=== PATIENT | female | born 1980 | race Hispanic/Latino ===

== ENCOUNTER 2022-08-08 11:24 | Observation (INO) | payer BC, MEDICAID, SELFPAY ==
[2022-08-08] VITALS (16 sets, daily range): BP systolic 154–196; BP diastolic 83–141; PULSE 44–68; RESP 15–22; TEMP 35.7–36.9; O2SAT 94–100; BMI 23.1; BMI 22.8
--- NOTE | 2022-08-08 11:33 | EKG12_ITS ---
Test Reason : NEURO Blood Pressure : / mmHG Vent. Rate : 067 BPM Atrial Rate : 067 BPM P-R Int : 158 ms QRS Dur : 082 ms QT Int : 432 ms P-R-T Axes : 074 076 073 degrees QTc Int : 456 ms Normal sinus rhythm Normal ECG Confirmed by LACY CARR ([id number]), development editor AVNI CADENA ([id number]) on 08/12/2022 8:01:38 AM Referred By: Confirmed By:LACY CARR
--- NOTE | 2022-08-08 11:33 | CT_ITS ---
HISTORY: Neuro deficit, acute, stroke suspected. TECHNIQUE: Multiple axial images were obtained of the head without intravenous contrast. A radiation dose optimization technique was used for this scan. 226 images. COMPARISON: None. FINDINGS: BRAIN PARENCHYMA: Small chronic appearing left superolateral cerebellar infarct. Small subacute appearing left inferomedial cerebellar infarct. No acute intra-axial hemorrhage identified. CSF SPACES: Generalized volume loss. No midline shift or other significant mass effect. No acute extra-axial hemorrhage seen. OTHER: Intact calvarium. No significant air fluid levels in the paranasal sinuses or mastoid air cells. Unremarkable orbits. CT/STROKE Brain/Head without Cont IMPRESSION: Small subacute appearing left inferomedial cerebellar infarct. No acute intracranial hemorrhage identified. Small chronic appearing left superolateral cerebellar infarct. N.B. : The above Results were Read Back by Mercedes Ding MD to Olaf Oates MD, and understanding confirmed on 08/08/2022 11:52:03 (ET). Electronically Signed: Mercedes Ding MD at 11:52 EDT ,
--- NOTE | 2022-08-08 11:34 | CT_ITS ---
HISTORY: vertigo, weakness - feels worse L side. Confusion, dysphasia, history of CVA.. TECHNIQUE: [place]/head and carotid CT angiogram protocol was performed after the intravenous administration of 100 mL Isovue 370. NASCET criteria using the distal ICAs for comparison were used for evaluation of stenoses. 3D reconstructions were reviewed. A radiation dose optimization technique was used for this scan. 1859 images. COMPARISON: CT head same day. FINDINGS: AORTIC ARCH AND BRANCHES: Patent. RIGHT CCA: No occlusion, significant stenosis or dissection. RIGHT ICA: No occlusion, significant stenosis or dissection. LEFT CCA: No occlusion, significant stenosis or dissection. LEFT ICA: No occlusion, significant stenosis or dissection. RIGHT VERTEBRAL ARTERY: Hypoplastic without occlusion. LEFT VERTEBRAL ARTERY: Dominant. No occlusion, significant stenosis or dissection. ICAs: No significant stenosis at the intracranial/visualized segments. ACAs: No significant stenosis at the visualized segments. MCAs: No significant stenosis at the visualized segments. restaurant crew: No significant stenosis at the visualized segments. Mild narrowing of the left P1 segment. BASILAR ARTERY: No significant stenosis. VERTEBRAL ARTERIES: Hypoplastic intracranial right vertebral artery terminates as PICA. Patent dominant left vertebral artery. No evidence of intracranial aneurysm or vascular malformation. CT/STROKE CTA Head AND Neck W/Con IMPRESSION: No evidence for significant stenosis or occlusion in the carotid or vertebral arteries of the neck. No evidence for large vessel occlusion in the [place] region. N.B. : The above Results were Read Back by Mercedes Ding MD to Olaf Oates MD, and understanding confirmed on 08/08/2022 12:06:16 (ET). Electronically Signed: Mercedes Ding MD at 12:06 EDT ,
--- NOTE | 2022-08-08 11:34 | ED.VIS.STROK ---
HPI History of Present Illness Chief Complaint: Syncope Informant: patient and EMS Narrative Narrative: Patient states just prior to arrival, she was at work, and she suddenly felt dizzy/spinning/vertiginous, had tinnitus in her left ear, and she states that is the last thing she remembered and thinks she passed out. She woke up on the floor. She is still having the spinning. She feels like she is heavy on the left side, and these are all similar symptoms that she had with mini strokes in the past. Apparently also she is an alcoholic, and she has a device on her car that makes her do a breathalyzer that is below a certain level before she can start her car, which she did prior to going to work this morning. The last time she had alcohol was yesterday, 2 shots. She states she has a throbbing headache right now. EMS states they estimate the episode happened only minutes prior to calling them for transport here. She is evaluated here by myself around 11:30 AM. [facility] Medical History (Updated 08/08/22 @ 13:[address] Olaf Oates MD) Blood clotting disorder CVA (cerebral vascular accident) Home Medications albuterol sulfate 90 mcg/actuation aerosol inhaler 1 puff inhalation Q6H PRN asthma 08/08/22 [History Last Taken Unknown] amlodipine 5 mg tablet 5 mg PO DAILY 08/08/22 [History Last Taken Unknown] atenolol 25 mg tablet 25 mg PO DAILY 08/08/22 [History Last Taken Unknown] clopidogrel 75 mg tablet (Plavix) 75 mg PO DAILY 08/08/22 [History Last Taken Unknown] famotidine 20 mg tablet (Pepcid) 20 mg PO DAILY 08/08/22 [History Last Taken Unknown] gabapentin 800 mg tablet 800 mg PO 4X/DAY 08/08/22 [History Last Taken Unknown] Allergy/AdvReac Type Severity Reaction Status Date / Time ketorolac [From Toradol] Allergy Other Verified 08/08/22 11:38 naproxen Allergy Other Verified 08/08/22 11:38 Sulfa (Sulfonamide Allergy Other Verified 08/08/22 11:38 Antibiotics) tramadol Allergy Other Verified 08/08/22 11:38 Social History Smoking Status: Current every day smoker tobacco type: cigarettes ROS ROS ED Constitutional Constitutional ED: Denies chills or fever(s) Eyes Eyes: Reports other Details: Trouble focusing due to vertigo but otherwise vision intact according to patient ; Denies change in vision or diplopia ENT ENT ED: Reports as per HPI, tinnitus and vertigo; Denies rhinorrhea or sore throat Cardiovascular Cardiovascular: Denies chest pain or palpitations Respiratory/Chest Respiratory/Chest: Denies cough or dyspnea Gastrointestinal Gastrointestinal: Denies abdominal pain, diarrhea, nausea or vomiting Genitourinary Genitourinary ED: Denies dysuria or hematuria Musculoskeletal Musculoskeletal: Denies back pain or neck pain Integumentary Denies abscess or rash Neurologic Neurologic: Reports abnormal speech, confusion, dizziness, headache(s) and weakness; Denies loss of vision Psychiatric Psychiatric: Denies anxiety or suicidal thoughts EXAM Physical Exam Const Vital Signs: 08/08/22 11:25 08/08/22 11:33 08/08/22 12:03 Temperature 97.7 F L 96.2 F L Temperature Source Temporal Temporal Pulse Rate 48 L 62 53 L Respiratory Rate 18 18 15 Blood Pressure 163/100 H 195/111 H 186/101 H Blood Pressure Mean 121 139 129 Pulse Ox 98 97 99 Oxygen Delivery Method Room Air Room Air Room Air 08/08/22 12:30 Temperature Temperature Source Pulse Rate 51 L Respiratory Rate 20 H Blood Pressure 162/115 H Blood Pressure Mean 130 Pulse Ox 95 Oxygen Delivery Method Room Air Positive well nourished and well developed General Appearance ED: well developed and NAD HEENT Reports moist mucous membranes normocephalic and atraumatic Eyes PERRL and EOMs intact bilaterally Eyes Narrative: Horizontal nystagmus, difficult to tell which direction, patient keeps moving her eyes Neck full ROM and supple Neck Narrative: No carotid bruits Resp normal respiratory effort and clear to auscultation bilaterally Cardio regular rate, regular rhythm and no murmurs GI non-tender and non-distended Auscultation: normoactive bowel sounds Palpation: soft Back/Spine no CVA tenderness General Back: other FROM Extremity normal to inspection General Extremety ED: Negative for edema, pulses abnormal or tenderness General Extremity: Negative for edema or pulses abnormal Neuro CN's II-XII intact bilaterally Neuro Narrative: See NIHSS. Patient does have some expressive aphasia, she has trouble repeating words and naming objects. Nonlateralizing peripheral weakness diffusely and symmetrically. Sensorium / Orientation: awake and alert Skin no rashes or lesions noted and no wounds NIHSS NIHSS Initial: 1a Level of Consciousness: 0 1b LOC Questions (Score 2 if aphasic/stupor): 2 1c LOC Commands (Only score 1st attempt): 0 2 Best Gaze (If aphasic, use reflexive mvmts.): 0 3 Visual: 0 4 Facial Palsy: 0 5 Motor Arm Right (UN = amputation/fusion): 2 5 Motor Arm Left: 2 6 Motor Leg Right: 2 6 Motor Leg Left: 2 7 Limb ataxia (Only + if out of proportion): 0 8 Sensory (Aphasia/stupor=0 or 1, coma=2): 1 9 Best Language: 1 10 Dysarthria (mute, coma=2, intubated=UN): 1 11 Extinction and Inattention (only scored if +): 0 Total Score: 13 MDM MDM MDM Narrative Medical decision making narrative: I called a stroke team because patient just started having the symptoms, states that this is similar to mini stroke that she had in the past, and her blood pressure is 195 the bedside when I am examining her. She does have some aphasia, but she does not have any lateralizing neurologic findings peripherally, questioning whether this is stroke or not. Tinnitus suggest a peripheral etiology, certainly this is a fairly mora case; I do not blame EMS for not suspecting an acute stroke, especially since the patient states she had a syncopal episode. Discussed with stroke neurologist after receiving phone calls from radiologist's regarding head CT showing an old infarct and a subacute infarct, without any old imaging available for comparison, and CTA of head and neck that are negative. I reviewed the images I agree with these interpretations. Stroke neurologist recommends against tenecteplase given unclear exact last known well, and unclear if this is an acute ischemic process, rather recommending inpatient stroke work-up. Patient unchanged on reexamination, weak diffusely peripherally. History & Record Review Additional record(s) reviewed:: No prior records Lab Data Attestation: I reviewed the patient's lab results. Labs: Laboratory Results - last 24 hr 08/08/22 08/08/22 08/08/22 11:15 11:15 11:15 WBC 5.5 RBC 3.77 L Hgb 12.0 Hct 35.9 L MCV 95.2 MCH 31.8 MCHC 33.4 RDW Std Deviation 43.6 RDW Coeff of [place]inda 12.6 Plt Count 193 MPV 10.0 Immature Gran % (Auto) 0.200 Neut % (Auto) 56.9 Lymph % (Auto) 34.1 [place] % (Auto) 4.3 Eos % (Auto) 3.6 Baso % (Auto) 0.9 Absolute Neuts (auto) 3.1 Absolute Lymphs (auto) 1.88 Nucleated RBC % 0 PT 13.9 INR 1.1 APTT 26.4 Sodium 139 Potassium 3.0 L Chloride 107 Carbon Dioxide 28.0 Anion Gap 4 L BUN 6 L Creatinine 0.67 Estim Creat Clear Calc 76.97 Est GFR (MDRD) Af Amer 122 Est GFR (MDRD) Non-Af 101 BUN/Creatinine Ratio 8.9 L Glucose 88 Calcium 8.8 Troponin I High Sens 5 Urine Opiates Screen Urine Methadone Screen Ur Barbiturates Screen Ur Phencyclidine Scrn Ur Amphetamines Screen MDMA (Ecstasy) Screen U Benzodiazepines Scrn Urine Cocaine Screen U Cannabinoids Screen Ur Drug Screen Comment Ethyl Alcohol 08/08/22 08/08/22 11:45 12:20 WBC RBC Hgb Hct MCV MCH MCHC RDW Std Deviation RDW Coeff of Lucinda Plt Count MPV Immature Gran % (Auto) Neut % (Auto) Lymph % (Auto) [place] % (Auto) Eos % (Auto) Baso % (Auto) Absolute Neuts (auto) Absolute Lymphs (auto) Nucleated RBC % PT INR APTT Sodium Potassium Chloride Carbon Dioxide Anion Gap BUN Creatinine Estim Creat Clear Calc Est GFR (MDRD) Af Amer Est GFR (MDRD) Non-Af BUN/Creatinine Ratio Glucose Calcium Troponin I High Sens Urine Opiates Screen NEGATIVE Urine Methadone Screen NEGATIVE Ur Barbiturates Screen NEGATIVE Ur Phencyclidine Scrn NEGATIVE Ur Amphetamines Screen NEGATIVE MDMA (Ecstasy) Screen NEGATIVE U Benzodiazepines Scrn NEGATIVE Urine Cocaine Screen NEGATIVE U Cannabinoids Screen POSITIVE H Ur Drug Screen Comment Ethyl Alcohol < 3.0 Radiography Chest X-Ray - ED: 1 View, Read by ED Physician, No Acute Disease and No Infiltrates Diagnostic Testing: Clinical Impression(s) from Imaging Studies Brain CT 08/08/22 11:33 IMPRESSION: Small subacute appearing left inferomedial cerebellar infarct. No acute intracranial hemorrhage identified. Small chronic appearing left superolateral cerebellar infarct. N.B. : The above Results were Read Back by Mercedes Ding MD to Olaf Oates MD, and understanding confirmed on 08/08/2022 11:52:03 (ET). Electronically Signed: Mercedes Ding MD at 11:52 EDT Reading Location ID and State: [facility] / [place] Tel , Service support , ADDENDUM: 08/08/22 1159 IMPRESSION: Small subacute appearing left inferomedial cerebellar infarct. No acute intracranial hemorrhage identified. Small chronic appearing left superolateral cerebellar infarct. N.B. : The above Results were Read Back by Mercedes Ding MD to Olaf Oates MD, and understanding confirmed on 08/08/2022 11:52:03 (ET). Electronically Signed: Mercedes Ding MD at 11:52 EDT Reading Location ID and State: [facility] / [place] Tel , Service support , Head/Neck CTA 08/08/22 11:34 IMPRESSION: No evidence for significant stenosis or occlusion in the carotid or vertebral arteries of the neck. No evidence for large vessel occlusion in the [place] region. Electronically Signed: Mercedes Ding MD at 12:06 EDT Reading Location ID and State: [facility] / [place] Tel , Service support , ADDENDUM: 08/08/22 1213 IMPRESSION: No evidence for significant stenosis or occlusion in the carotid or vertebral arteries of the neck. No evidence for large vessel occlusion in the [place] region. N.B. : The above Results were Read Back by Mercedes Ding MD to Olaf Oates MD, and understanding confirmed on 08/08/2022 12:06:16 (ET). Electronically Signed: Mercedes Ding MD at 12:06 EDT , Chest X-Ray 08/08/22 12:05 IMPRESSION: No acute cardiopulmonary process identified. Electronically Signed: Mercedes Ding MD at 12:24 EDT , Rhythm Strip Rhythm Strip: Sinus Rhythm Rate: 50 Ectopy: None EKG Initial EKG: Attestation: I personally reviewed and interpreted this EKG as follows: Interpretation: Sinus Rhythm and No Acute Injury Pattern Comments: Normal EKG Prior: No Prior Management Discussion w/another healthcare provider: Hospitalist, Tobacco Blender (Teleneurology) and Radiologist Stroke Documentation Questions Stroke Team Activated: Yes Was Patient considered for Endovascular Intervention?: No-CTA negative, determined not to be an endovascular candidate IV Thrombolytic Administered: No Critical Care Time Critical Care Time: Yes Critical care time (excluding procedures): 30-74 minutes (36 min), Including time spent:, Discussing w/Patient &/or Family/[employer], Discussing w/Consultants, Arranging Admission or Transfer and Performing Direct Patient Care at Bedside Discharge Plan Triage Chief Complaint: Syncope ED Provider: Olaf Oates Dx/Rx/DC Orders Clinical Impression: Syncope, Vertigo, Expressive aphasia Prescriptions: No Action atenolol 25 mg Tablet 25 mg PO DAILY clopidogrel [Plavix] 75 mg Tablet 75 mg PO DAILY amlodipine 5 mg Tablet 5 mg PO DAILY famotidine [Pepcid] 20 mg Tablet 20 mg PO DAILY gabapentin 800 mg Tablet 800 mg PO 4X/DAY albuterol sulfate 90 mcg/actuation Hfa Aerosol Inhaler 1 puff INHALATION Q6H PRN (Reason: asthma) Primary Care Provider: Care Physician,No Primary Referrals: NOT,DEFINED [Non-Staff] - Disposition Disposition: [facility]
--- NOTE | 2022-08-08 11:45 | ED.RN ---
called [facility] to inform pt back from CT, unable to perform tele assessment d/t neurologist being on another call at this time.
[2022-08-08 11:47] LABS: Absolute Lymphocyte Count 1.88 X10^3/uL (0.83-4.51); Absolute Neutrophil Count 3.1 X10^3/uL (2.0-7.7); Basophil# 0.05 X10^3/uL; Basophil% 0.9 % (0-1); Eosinophils% 3.6 % (0-5); Hematocrit 35.9 % (37-47); Lymphocyte # 1.88 X10^3/ul (0.83-4.51); Lymphocyte % 34.1 % (19-41); Mean Corp Hgb Conc 33.4 g/dL (32-36); Mean Corpuscular Hgb 31.8 pg (27.0-32.0); Mean Corpuscular Volume 95.2 fL (81-99); Monocyte# 0.24 X10^3/uL; Monocyte% 4.3 % (0-10); NRBC Flagged by Analyzer 0 % (0-5); Neutrophil # 3.14 X10^3/uL (2.7-7.7); Neutrophil % 56.9 % (47-70); Platelet Count 193 K/mm3 (150-450); RBC Distribution Width CV 12.6 % (11.6-14.6); RBC Distribution Width SD 43.6 fl (35.1-43.9); Red Blood Count 3.77 M/mm3 (4.2-5.4); White Blood Count 5.5 K/mm3 (4.4-11.0)
--- NOTE | 2022-08-08 11:53 | ED.RN ---
, Jacob [phone] and left voicemail.
[2022-08-08 11:54] LABS: International Normalized Ratio 1.1; Prothrombin Time (Protime)PT. 13.9 SECONDS (11.7-14.9)
[2022-08-08 11:55] LABS: Partial Thromboplast Time 26.4 Seconds (24.1-36.2)
--- NOTE | 2022-08-08 12:02 | ED.RN ---
[facility] stat line informed that neurologist will be beaming on
--- NOTE | 2022-08-08 12:05 | RAD_ITS ---
HISTORY: Neuro deficit, acute, stroke suspected. TECHNIQUE: XR Chest 1 View. COMPARISON: None. FINDINGS: CARDIOMEDIASTINAL BORDERS: Cardiac silhouette within normal limits in size. Mediastinal contour unremarkable. LUNGS: Radiographically clear. PLEURA: No pleural effusion or pneumothorax seen. OSSEOUS STRUCTURES: Unremarkable. RAD/Chest 1 View IMPRESSION: No acute cardiopulmonary process identified. Electronically Signed: Mercedes Ding MD at 12:24 EDT ,
[2022-08-08 12:08] LABS: Anion Gap 4 (5-15); BUN 6 mg/dL (7-18); BUN/Creat Ratio 8.9 RATIO (10-20); Calcium,Total 8.8 mg/dL (8.5-10.1); Chloride 107 mmol/L (98-107); Creatinine, Serum 0.67 mg/dL (0.55-1.02); EST Glomerular Filtration Rate 101 mL/min (>60); Est Glom Filt Rate - Afr Amer 122 mL/min (>60); Estimated Creatinine Clearance 76.97 ml/min; Glucose 88 mg/dL (74-106); Sodium Level 139 mmol/L (136-145); Troponin-I HS 5 pg/mL (3.0-54.0)
[2022-08-08 12:29] LABS: Alcohol, Blood (Medical)-Serum < 3.0 mg/dL
[2022-08-08 12:51] LABS: Amphetamine Urine VISTA NEGATIVE (<1000 ng/mL); Barbiturate Urine VISTA NEGATIVE (< 200 ng/mL); Benzodiazepine Urine VISTA NEGATIVE (< 200 ng/mL); Cocaine Urine VISTA NEGATIVE (< 300 ng/mL); Ecstacy Urine VISTA NEGATIVE (< 500 ng/mL); Methadone Urine VISTA NEGATIVE (< 300 ng/mL); PCP Urine VISTA NEGATIVE (< 25 ng/mL); THC Urine VISTA POSITIVE (< 50 ng/mL); Vista UDS pH Range 7
--- NOTE | 2022-08-08 14:14 | ED.RN ---
PT'S PIERCINGS REMOVED FROM LIP AND TONGUE FOR MRI. PLACED IN DENTURE CUP WITH WATCH AND BRACELET. CUP PLACED IN PT'S PURSE.
--- NOTE | 2022-08-08 14:18 | ED.RN ---
PTS CALLED AND THIS RN LEFT A VOICEMAIL REQUESTING TO BRING IN PTS BLADDER STIMULATOR CARD AND REMOTE FOR MRI PURPOSES.
--- NOTE | 2022-08-08 15:31 | ECHOD_ITS ---
Reason For Study: TIA/CVA Procedure This was a 2D Doppler, Color Flow transthoracic echocardiogram. Exam performed portable in patient room. Left Ventricle Normal left ventricle. The estimated ejection fraction is 55-60 %. Right Ventricle Normal systolic function. Atria Normal left atrium. Normal right atrium. Mitral Valve The mitral valve is structurally normal. No prolapse or stenosis seen. Tricuspid Valve Normal tricuspid valve. Aortic Valve Normal aortic valve. Great Vessels Normal aortic root. Pericardium/Pleural No pericardial effusion. Medication Performed a rapid injection of agitated mix of 9 cc saline and 1cc air to assess for atrial septal defect. MMode/2D Measurements & Calculations LVIDd: 4.4 cm IVSd: 0.93 cm Ao root diam: 2.7 cm LVIDs: 3.0 cm LVPWd: 0.82 cm RVDd: 2.7 cm FS: 31.5 % LAV(MOD-bp): 55.2 ml LA A4 area: 14.6 cm2 LA dimension(2D): 2.9 cm LAV(MOD-bp) Indexed: 37.0 ml/m2 LAV(MOD-sp2): 52.6 ml LAV(MOD-sp4): 41.9 ml RA A4 area: 10.9 cm2 Time Measurements MV dec time: 0.18 sec Doppler Measurements & Calculations MV E max lisandro: 95.4 cm/sec Lat Peak E' Lisandro: 17.8 cm/sec Med Peak E' Lisandro: 14.1 cm/sec MV A max lisandro: 38.8 cm/sec E/E' lat: 5.4 E/E' med: 6.8 MV E/A: 2.5 MV dec slope: 531.9 cm/sec2 Ao V2 max: 134.7 cm/sec LV V1 max: 96.1 cm/sec Ao max P.3 mmHg LV V1 max P.7 mmHg Ao V2 mean: 83.1 cm/sec LV V1 mean P.9 mmHg Ao mean P.3 mmHg LV V1 mean: 65.5 cm/sec Ao V2 VTI: 29.6 cm LV V1 VTI: 21.7 cm AV (velocity ratio): 0.73 PA V2 max: 103.1 cm/sec ECHO/Echo Complete Interpretation Summary The estimated ejection fraction is 55-60 %. No previous study to compare. No significant valvular abnormality noted Ordering Physician: Jona Mccurdy Referring Physician: CARIDAD PCP Performed By: Brooklyn Piedra RDCS, RVT
--- NOTE | 2022-08-08 16:26 | HP.PCM.HOS_ITS ---
HPI - General General Date of Admission: 08/08/22 HPI Narrative REBECA VILLA, is a 42 F who presents to the hospital with possible CVA. 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 She is already on Plavix but is not on any blood thinners. She is unsure as to when the symptoms started as she has amnesia, the last event that she remembers is being knocked down by her dog yesterday. CT of the brain was negative for head bleed and CTA of the head and neck is negative for large vessel occlusion. CT of the brain does demonstrate some subacute areas of prior infarct. She pre sents from work today because of an episode of vertigo and lightheadedness and syncope. She says that all of her extremities feel heavy it is possible this could be a seizure but there is no reports of seizure-like activity. She was evaluated by [facility] neurology who recommended to continue stroke work-up with an MRI. [facility] Medical History (Updated 08/08/22 @ 16:12 by Cheryl Paulino) Asthma Blood clotting disorder CVA (cerebral vascular accident) Family history of fibromyalgia Fibromyalgia Gastroenteritis Hypertension Home Medications albuterol sulfate 90 mcg/actuation aerosol inhaler 1 puff inhalation Q6H PRN asthma 08/08/22 [History Last Taken Unknown] amlodipine 5 mg tablet 5 mg PO DAILY 08/08/22 [History Last Taken Unknown] atenolol 25 mg tablet 25 mg PO DAILY 08/08/22 [History Last Taken Unknown] clopidogrel 75 mg tablet (Plavix) 75 mg PO DAILY 08/08/22 [History Last Taken Unknown] famotidine 20 mg tablet (Pepcid) 20 mg PO DAILY 08/08/22 [History Last Taken Unknown] gabapentin 800 mg tablet 800 mg PO 4X/DAY 08/08/22 [History Last Taken Unknown] Allergy/AdvReac Type Severity Reaction Status Date / Time ketorolac [From Toradol] Allergy Other Verified 08/08/22 11:38 naproxen Allergy Other Verified 08/08/22 11:38 Sulfa (Sulfonamide Allergy Other Verified 08/08/22 11:38 Antibiotics) tramadol Allergy Other Verified 08/08/22 11:38 Family History (Updated 08/08/22 @ 16:[address] Jona Mccurdy MD) Other Heart disease Surgical History no surgical history no surgical history Social History Smoking Status: Current every day smoker tobacco type: cigarettes ROS Constitutional Constitutional: Denies chills, fatigue, fever(s) or malaise Eyes Eyes: Denies blurry vision ENT HEENT: Denies headache(s) or nasal discharge Cardiovascular Cardiovascular: Reports syncope; Denies chest pain or dyspnea on exertion Respiratory/Chest Respiratory/Chest: Denies cough, shortness of breath at rest or shortness of breath with exertion Gastrointestinal Gastrointestinal: Denies constipation, diarrhea, nausea or vomiting Genitourinary Genitourinary: Denies dysuria Neurologic Neurologic: Reports abnormal speech, confusion, dizziness and syncope; Denies focal weakness, numbness or tremor(s) Psychiatric Psychiatric: Denies anxiety or depression Vital Signs Vital Signs Vital Signs: 08/08/22 11:25 08/08/22 11:33 08/08/22 12:03 Temperature 97.7 F L 96.2 F L Temperature Source Temporal Temporal Pulse Rate 48 L 62 53 L Respiratory Rate 18 18 15 Blood Pressure 163/100 H 195/111 H 186/101 H Blood Pressure Mean 121 139 129 Blood Pressure Source Blood Pressure Position Blood Pressure Location Pulse Ox 98 97 99 Oxygen Delivery Method Room Air Room Air Room Air 08/08/22 12:30 08/08/22 13:00 08/08/22 13:30 Temperature Temperature Source Pulse Rate 51 L 64 46 L Respiratory Rate 20 H 22 H 15 Blood Pressure 162/115 H 171/83 H 154/141 H Blood Pressure Mean 130 112 145 Blood Pressure Source Blood Pressure Position Blood Pressure Location Pulse Ox 95 95 94 Oxygen Delivery Method Room Air Room Air Room Air 08/08/22 13:36 08/08/22 14:00 08/08/22 14:30 Temperature 98.5 F Temperature Source Temporal Pulse Rate 46 L 49 L 44 L Respiratory Rate 18 16 18 Blood Pressure 168/102 H 168/102 H 167/104 H Blood Pressure Mean 124 124 125 Blood Pressure Source Blood Pressure Position Blood Pressure Location Pulse Ox 97 96 99 Oxygen Delivery Method Room Air Room Air Room Air 08/08/22 15:00 08/08/22 15:53 Temperature 98.2 F Temperature Source Oral Pulse Rate 44 L 50 L Respiratory Rate 19 H 18 Blood Pressure 164/93 H 196/102 H Blood Pressure Mean 116 133 Blood Pressure Source Monitor Blood Pressure Position Semi-Fowlers Blood Pressure Location Left Arm Pulse Ox 95 100 Oxygen Delivery Method Room Air Room Air Weight Weight: 117 lb Body Mass Index (BMI) 22.8 Physical Exam Narrative General: Alert, Oriented x3, Cooperative, No apparent distress HEENT: Atraumatic, PERRLA, EOMI, Normocephalic Oral: Moist Mucosa Neck: Supple, No JVD Lungs: Clear to auscultation, Normal air movement, No rhonchi, No wheeze, No rales Cardiovascular: Regular rate, Regular Rhythm, Normal S1, Normal S2, No murmurs Abdomen: Soft, Non Tender, Non-Distended, No Hepato-splenomegaly Extremities: No edema, Capillary Refill Less than 3 Seconds Skin: No rashes, No breakdown Musculoskeletal: No Tenderness to Palpation of Joints or Extremities Neurological: Cranial nerves II-XII grossly intact, can move her bilateral upper extremities but has difficulty moving her lower extremities cannot keep them in the air when elevated by me, Sensory exam intact to light touch and pain Psych/Mental Status: Normal Affect, Appropriate Results Lab / Micro Data Result Diagrams: 08/08/22 11:15 08/08/22 11:15 Labs: Laboratory Results - last 24 hr 08/08/22 11:15: WBC 5.5, RBC 3.77 L, Hgb 12.0, Hct 35.9 L, MCV 95.2, MCH 31.8, MCHC 33.4, RDW Std Deviation 43.6, RDW Coeff of Lucinda 12.6, Plt Count 193, MPV 10.0, Immature Gran % (Auto) 0.200, Neut % (Auto) 56.9, Lymph % (Auto) 34.1, [place] % (Auto) 4.3, Eos % (Auto) 3.6, Baso % (Auto) 0.9, Absolute Neuts (auto) 3.1, Absolute Lymphs (auto) 1.88, Nucleated RBC % 0 08/08/22 11:15: PT 13.9, INR 1.1, APTT 26.4 08/08/22 11:15: Sodium 139, Potassium 3.0 L, Chloride 107, Carbon Dioxide 28.0, Anion Gap 4 L, BUN 6 L, Creatinine 0.67, Estim Creat Clear Calc 76.97, Est GFR (MDRD) Af Amer 122, Est GFR (MDRD) Non-Af 101, BUN/Creatinine Ratio 8.9 L, Glucose 88, Calcium 8.8, Troponin I High Sens 5 08/08/22 11:45: Ethyl Alcohol < 3.0 08/08/22 12:20: Urine Opiates Screen NEGATIVE, Urine Methadone Screen NEGATIVE, Ur Barbiturates Screen NEGATIVE, Ur Phencyclidine Scrn NEGATIVE, Ur Amphetamines Screen NEGATIVE, MDMA (Ecstasy) Screen NEGATIVE, U Benzodiazepines Scrn NEGATIVE, Urine Cocaine Screen NEGATIVE, U Cannabinoids Screen POSITIVE H, Ur Drug Screen Comment Rhythm Strip Rhythm Strip: Sinus Rhythm Rate: 50 Ectopy: None Radiology Impression Brain CT 08/08/22 11:33 IMPRESSION: Small subacute appearing left inferomedial cerebellar infarct. No acute intracranial hemorrhage identified. Small chronic appearing left superolateral cerebellar infarct. N.B. : The above Results were Read Back by Mercedes Ding MD to Olaf Oates MD, and understanding confirmed on 08/08/2022 11:52:03 (ET). Electronically Signed: Mercedes Ding MD at 11:52 EDT , Head/Neck CTA 08/08/22 11:34 IMPRESSION: No evidence for significant stenosis or occlusion in the carotid or vertebral arteries of the neck. No evidence for large vessel occlusion in the [place] region. N.B. : The above Results were Read Back by Mercedes Ding MD to Olaf Oates MD, and understanding confirmed on 08/08/2022 12:06:16 (ET). Electronically Signed: Mercedes Ding MD at 12:06 EDT , Chest X-Ray 08/08/22 12:05 IMPRESSION: No acute cardiopulmonary process identified. Electronically Signed: Mercedes Ding MD at 12:24 EDT , Assessment & Plan Assessment/Plan (1) Vertigo: (2) Expressive aphasia: (3) Syncope: PLAN: Plan 1. Syncope vertigo with a CVA rule out ? She does have a history of strokes and the CT of the brain demonstrates a history of at least 1 subacute stroke ? We will check a homocysteine level if this is extremely elevated she might benefit from anticoagulation and following up with outpatient hematology ? MRI is pending, she does have a bladder stimulator in place ? Continue with her home Plavix but will allow for permissive hypertension ? Continue with IV fluids and statin 2. HTN ? Can continue to hold her blood pressure medications pending MRI results 3. GERD ? Stable ? Continue with Pepcid 4. Alcohol abuse/tobacco abuse ? He is to have a breathalyzer in order to start her car ? We will place on CIWA protocol with as needed Ativan ? Discussed tobacco cessation ? Continue with nicotine patch DVT: Ambulation 75 minutes spent in direct patient care as well as documentation and chart review as well as discussing the case with other colleagues. Charges/Coding Visit Charges Inpatient E&M: 34815 Init Hosp L3
[2022-08-08] MEDS: 0.9% Normal Saline 1,000 ML 100 ML IV (16:27)
[2022-08-08] MEDS: Gabapentin 800 MG Tablet PO (16:31)
[2022-08-08 17:22] LABS: Homocysteine 21.5 umol/L (3.2-10.7)
[2022-08-08] MEDS: Potassium Chloride Oral Tablet 20 MEQ 60 MEQ PO (18:04)
[2022-08-08] MEDS: Atorvastatin Calcium 80 MG Tablet PO (22:51)
[2022-08-08] MEDS: MELATONIN 3 MG TABLET PO (23:26)
[2022-08-09 02:00] VITALS: BP 150/83; PULSE 65; RESP 18; TEMP 36.8; O2SAT 93
[2022-08-09 02:45] VITALS: BMI 22.8
[2022-08-09] MEDS: 0.9% Normal Saline 1,000 ML 100 ML IV (03:04)
[2022-08-09 06:00] VITALS: BP 183/88; PULSE 65; RESP 16; TEMP 36.8; O2SAT 97
[2022-08-09 07:40] LABS: Absolute Lymphocyte Count 1.52 X10^3/uL (0.83-4.51); Absolute Neutrophil Count 2.2 X10^3/uL (2.0-7.7); Basophil# 0.04 X10^3/uL; Basophil% 0.9 % (0-1); Eosinophil# 0.19 X10^3/uL; Eosinophils% 4.5 % (0-5); Hemoglobin 12.4 g/dL (12.0-15.0); Lymphocyte # 1.52 X10^3/ul (0.83-4.51); Mean Corp Hgb Conc 31.8 g/dL (32-36); Mean Corpuscular Hgb 31.2 pg (27.0-32.0); Mean Platelet Vol. 10.5 fl (6.2-12.0); Monocyte# 0.24 X10^3/uL; Monocyte% 5.7 % (0-10); NRBC Flagged by Analyzer 0 % (0-5); Neutrophil # 2.22 X10^3/uL (2.7-7.7); Neutrophil % 52.7 % (47-70); Platelet Count 177 K/mm3 (150-450); RBC Distribution Width CV 12.8 % (11.6-14.6); RBC Distribution Width SD 45.7 fl (35.1-43.9); Red Blood Count 3.98 M/mm3 (4.2-5.4); White Blood Count 4.2 K/mm3 (4.4-11.0)
[2022-08-09 08:41] LABS: Anion Gap 2 (5-15); BUN 7 mg/dL (7-18); BUN/Creat Ratio 11.7 RATIO (10-20); Calcium,Total 8.5 mg/dL (8.5-10.1); Chloride 114 mmol/L (98-107); Cholesterol 132 mg/dL (200); EST Glomerular Filtration Rate 115 mL/min (>60); Est Glom Filt Rate - Afr Amer 139 mL/min (>60); Estimated Creatinine Clearance 85.94 ml/min; Glucose 88 mg/dL (74-106); High Density Lipoprotein 49 mg/dL; Potassium 4.2 mmol/L (3.5-5.1); Sodium Level 138 mmol/L (136-145); Triglycerides 47 mg/dL; Very Low Density Lipoprotein 9 mg/dL (5-40)
[2022-08-09] MEDS: Famotidine 20 MG Tablet PO (09:18)
[2022-08-09] MEDS: Clopidogrel Bisulfate 75 MG Tablet PO (09:18)
[2022-08-09] MEDS: Gabapentin 800 MG Tablet PO ×4 (09:20→22:05)
[2022-08-09 10:00] VITALS: BP 130/56; PULSE 89; RESP 14; TEMP 36.8; O2SAT 98
--- NOTE | 2022-08-09 11:00 | MRI_ITS ---
HISTORY: Used 1 channel T/R head coil d/t patients bladder stimulatorvertigo, expressive aphasia, clotting disorder, previous stroke. TECHNIQUE: Multiplanar and multisequence MR images of the brain were obtained without contrast. 371 images. COMPARISON: CT prior day. FINDINGS: BRAIN PARENCHYMA: Small chronic left lateral cerebellar infarct. Increased T2 FLAIR signal in the posterior sella, left greater than right, without convincing restricted diffusion. No acute intracranial hemorrhage identified. CSF SPACES: Cerebral ventricles, cortical sulci, and other extra-axial CSF spaces within normal limits in size for age. No significant midline shift or other mass effect.No extra-axial fluid collection. VASCULAR SYSTEM: Major intracranial flow voids are maintained. PARANASAL SINUSES AND MASTOID AIR CELLS: Minimal mucosal thickening in the ethmoid air cells. ORBITS: Symmetric contents. MRI/Brain without Contrast IMPRESSION: Increased T2 FLAIR signal in the posterior cerebellum, left greater than right, which may represent late subacute infarctions or cerebellitis. Consider follow-up to resolution or postcontrast imaging to exclude underlying lesion. Small chronic left lateral cerebellar infarct. Electronically Signed: Mercedes Ding MD at 13:44 EDT ,
[2022-08-09] MEDS: LORazepam 2 MG/ML Syringe 1 MG IV (11:02)
[2022-08-09] MEDS: 0.9% Saline Lock 10 ML Syringe IV (11:02)
--- NOTE | 2022-08-09 11:37 | PCM.PN.HOSP ---
Subjective Subjective No issues overnight, feels better today. Per nursing staff symptomatology appears during NIH is only Objective Data Objective Data Vital Signs: Vital Signs Temp Pulse Resp BP Pulse Ox O2 Del Method 98.3 F 65 16 183/88 H 97 Room Air 08/09/22 06:00 08/09/22 06:00 08/09/22 06:00 08/09/22 06:00 08/09/22 06:00 08/09/22 08:00 Oxygen Delivery Method Room Air Weight: 117 lb Body Mass Index (BMI) 22.8 Intake & Output: Intake and Output for Last 24 Hours 08/08/22 08/09/22 08/10/22 03:59 03:59 03:59 Intake Total 1360 / 1360 1096.67 / 1096.67 Output Total 175 / 175 300 / 300 Balance 1185 / 1185 796.67 / 796.67 Lab / Micro Data Result Diagrams: 08/09/22 06:15 08/09/22 06:15 Labs: Laboratory Results - last 24 hr 08/08/22 11:15: WBC 5.5, RBC 3.77 L, Hgb 12.0, Hct 35.9 L, MCV 95.2, MCH 31.8, MCHC 33.4, RDW Std Deviation 43.6, RDW Coeff of Lucinda 12.6, Plt Count 193, MPV 10.0, Immature Gran % (Auto) 0.200, Neut % (Auto) 56.9, Lymph % (Auto) 34.1, [place] % (Auto) 4.3, Eos % (Auto) 3.6, Baso % (Auto) 0.9, Absolute Neuts (auto) 3.1, Absolute Lymphs (auto) 1.88, Nucleated RBC % 0 08/08/22 11:15: PT 13.9, INR 1.1, APTT 26.4 08/08/22 11:15: Sodium 139, Potassium 3.0 L, Chloride 107, Carbon Dioxide 28.0, Anion Gap 4 L, BUN 6 L, Creatinine 0.67, Estim Creat Clear Calc 76.97, Est GFR (MDRD) Af Amer 122, Est GFR (MDRD) Non-Af 101, BUN/Creatinine Ratio 8.9 L, Glucose 88, Calcium 8.8, Troponin I High Sens 5 08/08/22 11:45: Ethyl Alcohol < 3.0 08/08/22 12:20: Urine Opiates Screen NEGATIVE, Urine Methadone Screen NEGATIVE, Ur Barbiturates Screen NEGATIVE, Ur Phencyclidine Scrn NEGATIVE, Ur Amphetamines Screen NEGATIVE, MDMA (Ecstasy) Screen NEGATIVE, U Benzodiazepines Scrn NEGATIVE, Urine Cocaine Screen NEGATIVE, U Cannabinoids Screen POSITIVE H, Ur Drug Screen Comment 08/08/22 16:36: Homocysteine 21.5 H 08/09/22 06:15: WBC 4.2 L, RBC 3.98 L, Hgb 12.4, Hct 39.0, MCV 98.0, MCH 31.2, MCHC 31.8 L, RDW Std Deviation 45.7 H, RDW Coeff of Lucinda 12.8, Plt Count 177, MPV 10.5, Immature Gran % (Auto) 0.200, Neut % (Auto) 52.7, Lymph % (Auto) 36.0, [place] % (Auto) 5.7, Eos % (Auto) 4.5, Baso % (Auto) 0.9, Absolute Neuts (auto) 2.2, Absolute Lymphs (auto) 1.52, Nucleated RBC % 0 08/09/22 06:15: Sodium 138, Potassium 4.2, Chloride 114 H, Carbon Dioxide 22.0, Anion Gap 2 L, BUN 7, Creatinine 0.60, Estim Creat Clear Calc 85.94, Est GFR (MDRD) Af Amer 139, Est GFR (MDRD) Non-Af 115, BUN/Creatinine Ratio 11.7, Glucose 88, Calcium 8.5, Triglycerides 47, Cholesterol 132, LDL Cholesterol 74, VLDL Cholesterol 9, HDL Cholesterol 49 Radiography Diagnostic Testing: Radiology Impression Brain CT 08/08/22 11:33 IMPRESSION: Small subacute appearing left inferomedial cerebellar infarct. No acute intracranial hemorrhage identified. Small chronic appearing left superolateral cerebellar infarct. N.B. : The above Results were Read Back by Mercedes Ding MD to Olaf Oates MD, and understanding confirmed on 08/08/2022 11:52:03 (ET). Electronically Signed: Mercedes Ding MD at 11:52 EDT Reading Location ID and State: [facility] / [place] Tel , Service support , Head/Neck CTA 08/08/22 11:34 IMPRESSION: No evidence for significant stenosis or occlusion in the carotid or vertebral arteries of the neck. No evidence for large vessel occlusion in the [place] region. N.B. : The above Results were Read Back by Mercedes Ding MD to Olaf Oates MD, and understanding confirmed on 08/08/2022 12:06:16 (ET). Electronically Signed: Mercedes Ding MD at 12:06 EDT , Chest X-Ray 08/08/22 12:05 IMPRESSION: No acute cardiopulmonary process identified. Electronically Signed: Mercedes Ding MD at 12:24 EDT , Rhythm Strip Rhythm Strip: Sinus Rhythm Rate: 50 Ectopy: None Physical Exam Narrative General: Alert, Oriented x3, Cooperative, No apparent distress HEENT: Atraumatic, PERRLA, EOMI, Normocephalic Oral: Moist Mucosa Neck: Supple, No JVD Lungs: Clear to auscultation, Normal air movement, No rhonchi, No wheeze, No rales Cardiovascular: Regular rate, Regular Rhythm, Normal S1, Normal S2, No murmurs Abdomen: Soft, Non Tender, Non-Distended, No Hepato-splenomegaly Extremities: No edema, Capillary Refill Less than 3 Seconds Skin: No rashes, No breakdown Musculoskeletal: No Tenderness to Palpation of Joints or Extremities Neurological: Cranial nerves II-XII grossly intact, can move her bilateral upper extremities but has difficulty moving her lower extremities cannot keep them in the air when elevated by me, Sensory exam intact to light touch and pain Psych/Mental Status: Normal Affect, Appropriate Assessment & Plan Assessment/Plan (1) Vertigo: (2) Expressive aphasia: (3) Syncope: PLAN: Plan 1. Syncope vertigo with a CVA rule out ? She does have a history of strokes and the CT of the brain demonstrates a history of at least 1 subacute stroke ? We will check a homocysteine level if this is extremely elevated she might benefit from anticoagulation and following up with outpatient hematology ? MRI is pending, she does have a bladder stimulator in place ? Echo is pending ? Continue with her home Plavix but will allow for permissive hypertension ? Continue with IV fluids and statin ? She states that regardless when the MRI is done she is leaving she does not want to stay I discussed with her that if she were to leave and she would have to sign out AMA she expressed understanding and states that she will do 2. HTN ? Can continue to hold her blood pressure medications pending MRI results 3. GERD ? Stable ? Continue with Pepcid 4. Alcohol abuse/tobacco abuse ? He is to have a breathalyzer in order to start her car ? We will place on CIWA protocol with as needed Ativan ? Discussed tobacco cessation ? Continue with nicotine patch DVT: Lovenox Charges/Coding Visit Charges Inpatient E&M: 53745 Subs Hosp L2
[2022-08-09 14:00] VITALS: BP 116/58; PULSE 70; RESP 14; TEMP 36.7; O2SAT 99
--- NOTE | 2022-08-09 14:00 | CASEMGMT ---
SW completed PHQ9 with patient which was a score of 16 indicating moderate/severe. Pt reports she is seeing mental health professionals for medications and counseling and reports a history of mental health concerns. Pt also reports some symptoms related to other conditions such as not sleeping well but she reports a sleep disorder and difficulty concentrating but also an adhd diagnosis. Pt declined resources due to already receiving services. Kimberly Haywood SENIOR TECHNICAL SUPPORT ENGINEER, SCREW MACHINE SET UP OPERATOR TOOL
--- NOTE | 2022-08-09 15:09 | CASEMGMT ---
SW spoke with patient regarding discharge planning. Discussed SNF for therapy with pt. Pt indicated she was not happy about it and wants to leave but realizes she needs therapy. Pt requests to be closer to home. A list of SNF providers including quality and resource use data and consistent with patient?s preferred geographic region, medical needs, and insurance network were [facility]. [facility] and [facility] denied due to being out of network. SW explained the process to patient and that approval from SNF and insurance would be needed and it can take days. Pt reports she will try to get better and leave today and is frustrated with her situation. Kimberly Haywood ENGINE PILOT, WEB KNITTER
[2022-08-09 15:38] VITALS: BMI 22.8
--- NOTE | 2022-08-09 15:54 | TELEMED_ITS ---
[facility] Tele[facility] has confirmed receipt of a request for visit. This document confirms receipt of the order initiating the consult. To find the results of the consultation, please view the patient's reports for the scanned Telemed Consult.
--- NOTE | 2022-08-09 17:41 | DCINST_ITS ---
Discharge Instructions Diet Discharge Diet: Low fat / Low cholesterol Activity Discharge Activity: Return to Normal Activity Dressing / Incision Call your doctor if you observe: Fever of 101 or Higher, Shortness of breath, Dizziness, Fainting spells, Swelling in the ankles, Chest pain and Increased palpitations (irregular heartbeat) Follow Up Care Test Results: Test results from this visit will be discussed in further detail at your follow- up appointment, if applicable. Discharge Plan Admission Admit Date/Time: 08/08/22 13:35 Attending Provider: Jona Mccurdy Primary Care Provider: Linh Vasquez Primary Instructions Additional Instructions / Restrictions: Follow-up with your PCP to monitor your renal function with a BMP since you were started on a medication called lisinopril which can affect renal function. As you did not want to stay for another 24 to 48 hours to complete an MRI of the C- spine or lumbar puncture, follow-up with your neurologist to obtain these test as an outpatient. Discharge Orders/Prescriptions Prescriptions: New amlodipine 10 mg Tablet 10 mg PO DAILY Qty: 30 0RF lisinopril 10 mg Tablet 10 mg PO DAILY Qty: 30 0RF pyridoxine (vitamin B6) 50 mg Tablet 50 mg PO BREAKFAST 30 Days Qty: 30 0RF folic acid 1 mg Tablet 5 mg PO BREAKFAST 30 Days Qty: 150 0RF multivitamin Tablet 1 tab PO BREAKFAST 30 Days Qty: 30 0RF thiamine HCl (vitamin B1) [Vitamin B-1] 100 mg Tablet 100 mg PO BREAKFAST 100 Days Qty: 100 0RF Continued atenolol 25 mg Tablet 25 mg PO DAILY clopidogrel [Plavix] 75 mg Tablet 75 mg PO DAILY famotidine [Pepcid] 20 mg Tablet 20 mg PO DAILY gabapentin 800 mg Tablet 800 mg PO 4X/DAY albuterol sulfate 90 mcg/actuation Hfa Aerosol Inhaler 1 puff INHALATION Q6H PRN (Reason: asthma) Discontinued amlodipine 5 mg Tablet 5 mg PO DAILY Referrals / Follow Up: Care Physician,No Primary [Primary Care Provider] - NOT,DEFINED [Non-Staff] - Disposition Disposition (needs filled in before D/C Order can be placed): Home, Self Care
[2022-08-09 20:00] VITALS: BP 168/98; PULSE 70; RESP 15; TEMP 37; O2SAT 96
--- NOTE | 2022-08-09 20:22 | PCM.PN.BLA ---
Progress Note Discussed case with teleneurologist. Per tele-neurologist patient needs further work-up. Nurse reported that patient want to leave AMA. Discussed with nursing that there is further work-up that needs to be done; and same should be communicated to patient. And if patient is not in agreement and wants to leave nurse is to give AMA papers to patient.
[2022-08-09] MEDS: Atorvastatin Calcium 80 MG Tablet PO (22:05)
[2022-08-10 00:12] VITALS: BMI 22.8
[2022-08-10] MEDS: Acetaminophen 325 MG Tablet 650 MG PO (00:58)
[2022-08-10] MEDS: amLODIPine 5 MG Tablet PO (00:58)
[2022-08-10 02:20] VITALS: BP 178/99; PULSE 70; RESP 15; TEMP 36.4; O2SAT 98
[2022-08-10 03:20] VITALS: BP 178/99; PULSE 70
[2022-08-10] MEDS: hydrALAZINE 20 MG/ML Vial 5 MG IV (03:20)
[2022-08-10] MEDS: Enoxaparin 40 MG/0.4 ML Syringe SC (08:13)
[2022-08-10] MEDS: Clopidogrel Bisulfate 75 MG Tablet PO (08:14)
[2022-08-10] MEDS: Famotidine 20 MG Tablet PO (08:14)
[2022-08-10] MEDS: Gabapentin 800 MG Tablet PO (08:19)
[2022-08-10] MEDS: Folic Acid 1 MG Tablet 5 MG PO (08:19)
[2022-08-10] MEDS: Multivitamins,Therapeutic Tablet 1 TABLET PO (08:19)
[2022-08-10] MEDS: Pyridoxine HCl 50 MG Tablet PO (08:19)
[2022-08-10] MEDS: Thiamine Hydrochloride 100 MG Tablet PO (08:19)
[2022-08-10] MEDS: amLODIPine 10 MG Tablet PO (08:20)
[2022-08-10] MEDS: Lisinopril 10 MG Tablet PO (08:20)
[2022-08-10] MEDS: Atenolol 25 MG Tablet PO (08:20)
[2022-08-10 08:25] VITALS: BP 163/101; PULSE 67; RESP 14; TEMP 36.7; O2SAT 100
--- NOTE | 2022-08-10 09:52 | DS.PCM_ITS ---
Providers Date of Admission: 08/08/22 Primary Care Physician: No Primary Care Phys Reason For Visit: CVA R/O Diagnosis Discharge Diagnosis (1) Vertigo: Status: Acute Code(s): R42 - Dizziness and giddiness (2) Expressive aphasia: Status: Acute Code(s): R47.01 - Aphasia (3) Syncope: Status: Acute Code(s): R55 - Syncope and collapse Medications at Discharge Home Medications albuterol sulfate 90 mcg/actuation aerosol inhaler 1 puff inhalation Q6H PRN asthma 08/08/22 atenolol 25 mg tablet 25 mg PO DAILY 08/08/22 clopidogrel 75 mg tablet (Plavix) 75 mg PO DAILY 08/08/22 famotidine 20 mg tablet (Pepcid) 20 mg PO DAILY 08/08/22 gabapentin 800 mg tablet 800 mg PO 4X/DAY 08/08/22 amlodipine 10 mg tablet 10 mg PO DAILY #30 tabs 08/10/22 folic acid 1 mg tablet 5 mg PO BREAKFAST 30 days #150 tabs 08/10/22 lisinopril 10 mg tablet 10 mg PO DAILY #30 tabs 08/10/22 multivitamin 1 tab PO BREAKFAST 30 days #30 tabs 08/10/22 pyridoxine (vitamin B6) 50 mg tablet 50 mg PO BREAKFAST 30 days #30 tabs 08/10/22 thiamine HCl (vitamin B1) 100 mg tablet (Vitamin B-1) 100 mg PO BREAKFAST 100 days #100 tabs 08/10/22 Hospital Course Operations None Procedures 2-D Echocardiogram Summary of Care Provided Minutes Spent on Discharge: 42 Hospital Course: Per HPI: REBECA MARTELJACKSON VILLA, is a 42 F who presents to the hospital with possible CVA.? 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 She is already on Plavix but is not on any blood thinners.? She is unsure as to when the symptoms started as she has amnesia, the last event that she remembers is being knocked down by her dog yesterday.? CT of the brain was negative for head bleed and CTA of the head and neck is negative for large vessel occlusion.? CT of the brain does demonstrate some subacute ar eas of prior infarct.? She presents from work today because of an episode of vertigo and lightheadedness and syncope.? She says that all of her extremities feel heavy it is possible this could be a seizure but there is no reports of seizure-like activity.? She was evaluated by [facility] neurology who recommended to continue stroke work-up with an MRI. Hospital Course: 1. Syncope vertigo with a CVA rule out ? She does have a history of strokes and the CT of the brain demonstrates a history of at least 1 subacute stroke ? Her homocystine was elevated however in discussion with neurology they recommended treatment with folic acid and thiamine ? MRI initially showed possible subacute stroke however [facility] neurology was consulted and they felt that there was no strokes evident, there was an increase in T2 flair signal and they thought that it could be due to press in her hypertension. They recommended MRI of her C-spine as well as a lumbar puncture however I discussed with her that these tests would probably occur on Thursday or Thursday and she refused to stay saying that she has had these done before and that a previous spinal tap was extremely Perin full and she does not want to go through that again. She has had multiple MRIs and ovaries been able to find a nything so she does not see why she needs to stay to have these test done again. I discussed with her that we will make adjustments to her blood pressure medications as well as starting her on the multivitamin secondary to her elevated homocystine as well as history of alcohol abuse and have her follow-up with her neurologist as well as her PCP as an outpatient and hopefully get this time is done then. I discussed with her the possibility for discharge she expressed understanding of the risk benefits of going home and wants to go home today. ? Echo is unremarkable ? Continue with her home Plavix ? Continue with IV fluids and statin 2. HTN ? Now that her MRI is negative for stroke, will resume her home atenolol and increase her Norvasc to 10 mg p.o. daily and will also initiate her on l isinopril 10 mg p.o. daily ? I discussed with her the need to follow-up with her PCP to obtain BMPs to monitor her renal functions and she will be started on lisinopril 3. GERD ? Stable ? Continue with Pepcid 4. Alcohol abuse/tobacco abuse ? He is to have a breathalyzer in order to start her car ? We will place on CIWA protocol with as needed Ativan ? Discussed tobacco cessation ? Continue with nicotine patch ? Given her elevated homocystine level and her alcohol abuse we will start her on thiamine as well as folic acid. Physical Exam Narrative General: Alert, Oriented x3, Cooperative, No apparent distress HEENT: Atraumatic, PERRLA, EOMI, Normocephalic Oral: Moist Mucosa Neck: Supple, No JVD, no pain or tenderness Lungs: Clear to auscultation, Normal air movement, No rhonchi, No wheeze, No rales Cardiovascular: Regular rate, Regular Rhythm, Normal S1, Normal S2, No murmurs Abdomen: Soft, Non Tender, Non-Distended, No Hepato-splenomegaly Extremities: No edema, Capillary Refill Less than 3 Seconds Skin: No rashes, No breakdown Musculoskeletal: No Tenderness to Palpation of Joints or Extremities Neurological: Cranial nerves II-XII grossly intact, can move her bilateral upper extremities and is now able to move her lower extremities though not well, Sensory exam intact to light touch and pain. NIH scoring is variable and changes depending on whether or not she knows we're testing her NIH Psych/Mental Status: Normal Affect, Appropriate Weight / BMI Weight Weight: 117 lb Body Mass Index (BMI) 22.8 ABG / Lab / Microbiology Data Result Diagrams: 08/09/22 06:15 08/09/22 06:15 Microbiology: Microbiology 08/10/22 00:15 Nasal Secretion SARS-CoV-2 Antigen (Rapid) - Final Radiography Diagnostic Testing: Radiology Impression Echocardiogram 08/08/22 15:31 Interpretation Summary The estimated ejection fraction is 55-60 %. No previous study to compare. No significant valvular abnormality noted Ordering Physician: Jona Mccurdy Referring Physician: NO PCP Performed By: Brooklyn Piedra, DAMIAN, RVT Brain MRI 08/09/22 11:00 IMPRESSION: Increased T2 FLAIR signal in the posterior cerebellum, left greater than right, which may represent late subacute infarctions or cerebellitis. Consider follow-up to resolution or postcontrast imaging to exclude underlying lesion. Small chronic left lateral cerebellar infarct. Electronically Signed: Mercedes Ding MD at 13:44 EDT Reading Location ID and State: [facility] / [place] Tel , Service support , D/C Instructions Discharge Diet: Low fat / Low cholesterol Call your doctor if you observe: Fever of 101 or Higher, Shortness of breath, Dizziness, Fainting spells, Swelling in the ankles, Chest pain and Increased palpitations (irregular heartbeat) Meaningful Use Info Meaningful Use Diagnoses (Choose all that apply): None applicable Discharge Plan Admission Admit Date/Time: 08/08/22 13:35 Attending Provider: Jona Mccurdy Primary Care Provider: Care Physician,No Primary Instructions Additional Instructions / Restrictions: Follow-up with your PCP to monitor your renal function with a BMP since you were started on a medication called lisinopril which can affect renal function. As you did not want to stay for another 24 to 48 hours to complete an MRI of the C- spine or lumbar puncture, follow-up with your neurologist to obtain these test as an outpatient. Discharge Orders/Prescriptions Prescriptions: New amlodipine 10 mg Tablet 10 mg PO DAILY Qty: 30 0RF lisinopril 10 mg Tablet 10 mg PO DAILY Qty: 30 0RF pyridoxine (vitamin B6) 50 mg Tablet 50 mg PO BREAKFAST 30 Days Qty: 30 0RF folic acid 1 mg Tablet 5 mg PO BREAKFAST 30 Days Qty: 150 0RF multivitamin Tablet 1 tab PO BREAKFAST 30 Days Qty: 30 0RF thiamine HCl (vitamin B1) [Vitamin B-1] 100 mg Tablet 100 mg PO BREAKFAST 100 Days Qty: 100 0RF Continued atenolol 25 mg Tablet 25 mg PO DAILY clopidogrel [Plavix] 75 mg Tablet 75 mg PO DAILY famotidine [Pepcid] 20 mg Tablet 20 mg PO DAILY gabapentin 800 mg Tablet 800 mg PO 4X/DAY albuterol sulfate 90 mcg/actuation Hfa Aerosol Inhaler 1 puff INHALATION Q6H PRN (Reason: asthma) Discontinued amlodipine 5 mg Tablet 5 mg PO DAILY Referrals / Follow Up: Care Physician,No Primary [Primary Care Provider] - NOT,DEFINED [Non-Staff] - Disposition Disposition (needs filled in before D/C Order can be placed): Home, Self Care Charges/Coding Visit Charges Inpatient E&M: 33479 Disch Hosp >30min
[2022-08-10 10:25] VITALS: BP 146/89; PULSE 64; RESP 12; TEMP 36.7; O2SAT 98
[2022-08-10 11:52] VITALS: BMI 22.8
--- NOTE | 2022-08-10 12:56 | NURSING ---
Pt called in after she was d/c and stated she left some jewelry behind in her room she did not state what she left however Julia COREA and myself went in the room and went through the whole room including linen cart and did not find any jewelry.
== END 2022-08-10 09:50 | disposition home or self-care (01) ==
LOC: ED 13:04 → PCU 15:34
PROVIDERS: Admitting Provider Family Medicine; Emergency Provider Emergency Medicine; Visit Provider Family Medicine
DX: R55 Syncope and collapse (principal); E72.11 Homocystinuria; F17.210 Nicotine dependence, cigarettes, uncomplicated; H93.19 Tinnitus, unspecified ear; R47.01 Aphasia; K21.9 Gastro-esophageal reflux disease without esophagitis; F10.10 Alcohol abuse, uncomplicated; R42 Dizziness and giddiness; I10 Essential (primary) hypertension; Z86.73 Personal history of transient ischemic attack (TIA), and cerebral infarction without residual deficits; Z79.899 Other long term (current) drug therapy; Z79.02 Long term (current) use of antithrombotics/antiplatelets
CPT/HCPCS: 36415; 70450; 70496; 70498; 70551; 71045; 80048; 80061; 80307; 82077; 83090; 84484; 85025; 85610; 85730; 87426; 92523; 92610; 93005; 93306; 94762; 96361; 96374; 96375; 97110; 97116; 97162; 97166; 97530; 99221; 99285; 99406; J7030; J7050; P9612; Q9967; A4216; G0378